=== PATIENT | female | born 1970 | race Caucasian/White ===

== ENCOUNTER 2024-02-25 08:19 | Outpatient (CLI) | payer BC, OTHER | END 2024-02-25 23:59 | disposition home or self-care (01) | LOC: MRI02 08:19 | PROVIDERS: ATTEND Pediatrics Sports Medicine | DX: M47.812 Spondylosis without myelopathy or radiculopathy, cervical region (principal); M48.02 Spinal stenosis, cervical region; M54.2 Cervicalgia; Z72.0 Tobacco use | CPT/HCPCS: 72141 ==